=== PATIENT | female | born 1990 | race Caucasian/White ===

== ENCOUNTER 2016-07-04 07:40 | Emergency (ER) | payer SELFPAY ==
[~2016-07-04] VITALS: Wt 51.5 kg
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
[2016-07-04] MEDS ORDERED: ONDANSETRON (ODT) 4 MG TAB ODT STA (08:31)
[2016-07-04] MEDS ORDERED: KETOROLAC 30 MG INJ IM STA (08:31)
--- NOTE | 2016-07-04 09:10 | RADRPT ---
PROCEDURE: XR Chest. CLINICAL INDICATION: The TECHNIQUE: PA and Lateral views of the chest were obtained. COMPARISON: None. FINDINGS: The cardiomediastinal silhouette is within normal limits. The lungs are clear. No signs of pleural f luid or pneumothorax are seen. The osseous structures and soft tissues are unremarkable. IMPRESSION: No evidence for active cardiopulmonary disease. RPTAT: PP .Shaila Briones MD, MD Date Time Electronically viewed and signed by .Shaila Briones MD, MD on 07/04/2016 09:09 .M/
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
[2016-07-04] MEDS ORDERED: CYCL-319 PO (09:25)
[2016-07-04] MEDS ORDERED: ONDA4TAB14 PO (09:26)
[2016-07-04] MEDS ORDERED: IBUP400T22 PO (09:26)
== END 2016-07-04 09:33 | disposition home or self-care (01) ==
LOC: FTE 07:40
DX: S06.0X0A Concussion without loss of consciousness, initial encounter (principal); S19.9XXA Unspecified injury of neck, initial encounter; S39.92XA Unspecified injury of lower back, initial encounter; R11.10 Vomiting, unspecified; V49.40XA Driver injured in collision with unspecified motor vehicles in traffic accident, initial encounter
CPT/HCPCS: 70450; 71020; 72125; J1885; 96372

== ENCOUNTER 2017-12-26 02:40 | Emergency (ER) | END 2017-12-26 04:07 | disposition home or self-care (01) ==